=== PATIENT | female | born 1995 | race Caucasian/White ===

== ENCOUNTER 2024-03-03 13:45 | Emergency (ER) | payer OTHER ==
[2024-03-03 13:55] VITALS: BP 108/70; PULSE 67; RESP 20; TEMP 97.8; BMI 25.6
[2024-03-03] MEDS ORDERED: IBUPROFEN 400 MG TABLET (FP) PO ONE (14:12)
[2024-03-03] MEDS ORDERED: LIDOCAINE 4% PATCH TP ONE (14:12)
[2024-03-03] MEDS: IBUPROFEN 400 MG TABLET (FP) PO ONE (14:18)
[2024-03-03] MEDS: LIDOCAINE 5% TOPICAL PATCH TP ONE (14:18)
[2024-03-03] MEDS ORDERED: LIDOCAINE PATCH REMOVAL MC SCH (22:00)
== END 2024-03-03 15:27 | disposition home or self-care (01) ==
LOC: JERFT 13:45
DX: M54.6 Pain in thoracic spine (principal); X50.0XXA Overexertion from strenuous movement or load, initial encounter; Y99.0 Civilian activity done for income or pay
CPT/HCPCS: 99283-25

== ENCOUNTER 2024-06-30 16:49 | Emergency (ER) | payer OTHER ==
[2024-06-30 17:01] VITALS: BP 127/84; PULSE 94; RESP 18; TEMP 98.6; BMI 27.2
[2024-06-30 17:53] LABS: URINE APPEARANCE CLOUDY; URINE BILIRUBIN NEGATIVE (NEGATIVE); URINE COLOR YELLOW; URINE GLUCOSE (UA) NEGATIVE (NEGATIVE); URINE KETONE NEGATIVE (NEGATIVE); URINE LEUK ESTERASE NEGATIVE (NEGATIVE); URINE NITRITE NEGATIVE (NEGATIVE); URINE PROTEIN NEGATIVE (NEGATIVE); URINE UROBILINOGEN 0.2 mg/dL (0.2-1.0)
[2024-06-30] MEDS ORDERED: ACETAMINOPHEN 500 MG TABLET (FP) ONE (18:17)
[2024-06-30 18:18] LABS: BASO % 0.5 % (0-2.0); EOS % 0.8 % (0-4.5); LYMPH % 38.6 % (8-40); MCHC 34.1 g/dl (32.0-36.0); MEAN CELL VOLUME 91.1 fl (80-96); MEAN PLT VOLUME 8.9 fl (7.5-11.1); MONO % 5.8 % (3.8-10.2); NEUT % 54.3 % (42.8-82.8); PLATELET COUNT 229 10^3/uL (134-434); RDW 12.8 % (11.6-15.6)
[2024-06-30] MEDS: ACETAMINOPHEN 500 MG TABLET (FP) PO ONE (18:23)
[2024-06-30] MEDS: ACETAMINOPHEN 1000 MG/100 ML BAG IVPB ONE (18:24)
[2024-06-30] MEDS: SODIUM CHLORIDE 0.9% 500 ML INFUS.BAG IV ONE (18:24)
[2024-06-30 18:37] LABS: CHLORIDE 103 mmol/L (98-107); POTASSIUM 3.9 mmol/L (3.5-5.1); SODIUM 137 mmol/L (136-145)
[2024-06-30 18:39] LABS: CALCIUM 9.1 mg/dL (8.5-10.1)
[2024-06-30 18:40] LABS: ALBUMIN 3.6 g/dl (3.4-5.0); ANION GAP 7 mmol/L (4-13); BLOOD UREA NITROGEN 13.3 mg/dL (7-18); CO2 27 mmol/L (21-32); GLUCOSE,RANDOM 84 mg/dL (74-106)
[2024-06-30 18:43] LABS: CREATININE 0.6 mg/dL (0.55-1.3); SGOT/AST 22 U/L (15-37); SGPT/ALT 27 U/L (13-61)
[2024-06-30 18:44] LABS: BILIRUBIN,TOTAL 0.4 mg/dL (0.2-1); TOT PROT 6.7 g/dl (6.4-8.2)
[2024-06-30 18:47] LABS: ALK PHOS 48 U/L (45-117)
[2024-06-30 19:37] LABS: HIV INTERPRETATION NEGATIVE (NEGATIVE)
== END 2024-06-30 22:25 | disposition home or self-care (01) ==
LOC: JER 16:49
DX: N83.11 Corpus luteum cyst of right ovary (principal)
CPT/HCPCS: 36415; 76775-TC; 76830-TC; 76856-TC; 80053; 81003; 84703; 85025; 86140; 86803; 87086; 87389; 93971-TC; 99284-25